=== PATIENT | male | born 1985 | race Two or more races ===

== ENCOUNTER 2021-06-18 10:46 | Emergency (ER) | payer OTHER ==
[2021-06-18 11:31] LABS: HEMOGLOBIN 15.7 gm/dl (14.0-17.5); RED BLOOD COUNT 5.05 M/UL (4.20-5.50); WHITE BLOOD COUNT 10.3 K/UL (4.5-11.0)
[2021-06-18 11:51] LABS: BUN/CREATININE RATIO 17 (0-10)
[2021-06-18] MEDS ORDERED: ENDOCET 5-3251 EACH PO (12:59)
== END 2021-06-18 13:00 | disposition home or self-care (01) ==
LOC: ER1 10:46
PROVIDERS: Physician Assistant
DX: N13.2 Hydronephrosis with renal and ureteral calculous obstruction (principal); Z88.0 Allergy status to penicillin
CPT/HCPCS: 51702; 80053; 81001; 85025; 87086; 96374; 96375; 99284; J1885; J2405